=== PATIENT | male | born 1990 | race Caucasian/White ===

== ENCOUNTER 2020-10-04 14:13 | Emergency (ER) | payer OTHER ==
[~2020-10-04 14:13] MED LIST: AMOXICILLIN500 MG PO
[2020-10-04 16:33] LABS: BASOPHIL 0.6 % (0-2); EOSINOPHIL 1.3 % (0-5); HCT 46.6 % (42.0-52.0); HGB 16.3 g/dl (13.2-18.0); LYMPHOCYTE 11.2 % (15-48); MCH 30.3 pg (25.0-31.0); MCV 86.6 fL (78.0-100.0); MONOCYTE 4.9 % (0-12); MPV 9.9 fL (6.0-9.5); NEUTROPHIL 81.7 % (41-80); NRBC 0; PLT 260 K/uL (150-400); RBC 5.38 M/uL (4.70-6.00); RDW 11.9 % (11.5-14.0); WBC 14.4 K/uL (4.0-10.5)
[2020-10-04 17:12] LABS: ALBUMIN 4.1 g/dL (3.4-5.0); CREATININE 0.85 mg/dL (0.67-1.17); GLOBULIN (CALCULATION) 3.3 g/dL; POTASSIUM 4.5 mmol/L (3.5-5.1); TOTAL PROTEIN 7.4 g/dL (6.4-8.2)
[2020-10-04 21:12] LABS: BILIRUBIN 1+ mg/dL (NEGATIVE); BLOOD NEGATIVE Ery/uL (NEGATIVE); CLARITY CLEAR (CLEAR); COLOR YELLOW (YELLOW); GLUCOSE (U) NORMAL (NORMAL); LEUKOCYTES NEGATIVE Leu/uL (NEGATIVE); NITRITE NEGATIVE (NEGATIVE); PROTEIN NEGATIVE (NEGATIVE); SPECIFIC GRAVITY 1.025 (1.001-1.030)
[2020-10-04 21:16] LABS: AMPHETAMINES NEGATIVE (NEGATIVE); BARBITURATES NEGATIVE (NEGATIVE); ECSTASY (MDMA) NEGATIVE (NEGATIVE); MARIJUANA (THC) POSITIVE (NEGATIVE); METHADONE NEGATIVE (NEGATIVE); OPIATES NEGATIVE (NEGATIVE); OXYCODONE NEGATIVE (NEGATIVE)
== END 2020-10-04 23:14 | disposition other institution (70) ==
LOC: FER 14:13
PROVIDERS: Emergency Medicine
DX: G45.9 Transient cerebral ischemic attack, unspecified (principal); I10 Essential (primary) hypertension; F17.210 Nicotine dependence, cigarettes, uncomplicated
CPT/HCPCS: 36415; 70450; 80053; 80305; 81003; 85025; 93005